=== PATIENT | female | born 1975 | race American Indian/Alaskan Native ===

== ENCOUNTER 2020-11-12 20:25 | Emergency (ER) | payer MEDICAID ==
[2020-11-12 20:45] VITALS: BP 130/72
--- NOTE | 2020-11-12 21:34 | XRay Report ---
RIGHT WRIST 4 VIEW(S) INDICATION / CLINICAL INFORMATION: lifting injury COMPARISON: None available. FINDINGS: BONES / JOINT(S): No acute fracture or subluxation. No significant arthritis. SOFT TISSUES: No significant abnormality. ADDITIONAL FINDINGS: None. Signer Name: Jerrell Jolly DO Signed: 11/12/2020 9:29 PM Workstation Name: [id number]
--- NOTE | 2020-11-12 22:52 | Emergency Department Report ---
Blank Doc - Documentation Documentation: I received this chart for provider to be seen and I placed the patient on the tracker to room 40 as per the chart initiated patient to be in. As I entered the patient's room, the patient was not present. I did not see or examine the patient. Patient has been called by me to the phone number listed with no answer. The RN was notified of patient not being there and to call patient to return for further evaluation and treatment. Patient left without being seen by me or any other provider.
== END 2020-11-12 22:01 | disposition left against medical advice (07) ==
LOC: ED 20:25
DX: M25.531 Pain in right wrist (principal); Z53.21 Procedure and treatment not carried out due to patient leaving prior to being seen by health care provider